=== PATIENT | female | born 1985 | race Caucasian/White ===

== ENCOUNTER 2024-09-14 18:43 | Outpatient (CLI) | payer MEDICAID, SELFPAY ==
--- NOTE | 2024-09-14 19:00 | MR_ITS ---
[address] [address] Phone:?[phone] Fax:?[phone] Referring Physician Information: Jenny Giron [address] [facility] [address] Phone:?[phone] Fax:?[phone] Patient:?Ramona Weiss D.O.B:?1985 Sex:?Female Phone:?[phone] [facility] MRN:?[id number] Exam Date:?09/14/2024 EXAM: MRI of the RIGHT FOOT, including forefoot and midfoot, without contrast CLINICAL INFORMATION: Female, 39 years old, with right foot pain INDICATION: Evaluate for stress fracture. PRIOR SURGERY: None reported. PLAIN FILMS: Radiograph 09/09/2024. COMPARISONS: No prior MRIs available. TECHNICAL INFORMATION: Using a 1.5T MR scanner and a localizing surface coil: sagittals: PD, T2 axials (long-axis): PD, T2, STIR coronals (short-axis): T1, STIR SEDATION: None CONTRAST: None FINDINGS: Osseous structures: Forefoot: No fracture, stress injury or marrow edema/pathology. Midfoot: No fracture, stress injury or marrow edema/pathology. Tarsal coalition: No calcaneonavicular or cubonavicular coalition. Joints: IP: No arthropathy or pathologic effusion. MTP: No arthropathy or pathologic effusion. TMT: No arthropathy or pathologic effusion. Tarsal: No arthropathy or pathologic effusion. Lisfranc joint ligamentous complex: Lisfranc ligament complex: Dorsal, interosseous and plantar ligaments are intact, without sprain or disruption. TMT/intermetatarsal ligaments: Intact without sprain/disruption. Myotendinous structures: Flexor tendons: Intact, without tendinopathy, tear, or tenosynovitis. Extensor tendons: Intact, without tendinopathy, tear, or tenosynovitis. Plantar aponeurosis: Normal, without ongoing fasciopathy, tear or mass, although its proximal aspect at calcaneus is not included. Intrinsic musculature: Normal in bulk and attenuation. Soft tissues: No demonstrable plantar interdigital neuroma. Moderate intermetatarsal bursitis between the first and second, and third and fourth metatarsal heads. Mild intermetatarsal bursitis between the second and third metatarsal heads. No soft tissue masses or ganglion cysts. Relatively prominent dorsal forefoot and midfoot subcutaneous soft tissue edema/swelling. Circumferential soft tissue edema/swelling. IMPRESSION: 1. No stress/occult fracture or other marrow edema/pathology. 2. Moderate intermetatarsal bursitis between the first and second, and third and fourth metatarsal heads. Mild intermetatarsal bursitis between the second and third metatarsal heads. 3. Relatively prominent dorsal foot soft tissue edema/swelling, as well as circumferential soft tissue edema about the second toe. 4. Joints of the visualized foot are intact without premature degenerative change. KME Electronically signed on 09/15/2024 1:37:00 PM by Ana Ashley M.D.
== END 2024-09-14 18:44 | disposition home or self-care (01) ==
LOC: MRI 18:46
PROVIDERS: Visit Provider Physician Assistant
DX: M79.671 Pain in right foot (principal); M77.51 Other enthesopathy of right foot and ankle; Q72.891 Other reduction defects of right lower limb
CPT/HCPCS: 73718